=== PATIENT | female | born 1985 | race Caucasian/White ===

== ENCOUNTER 2017-01-14 17:58 | Emergency (ER) | payer BC ==
[2017-01-14] MEDS ORDERED: diphenhydrAMINE 50 MG/ML SDV ONE (18:05)
[2017-01-14] MEDS ORDERED: Ketorolac 30 MG/ML SDV ONE (18:05)
[2017-01-14] MEDS ORDERED: Ondansetron 4 MG/2 ML SDV ONE (18:05)
[2017-01-14] MEDS: Sodium Chloride 0.9% 1,000 ML IV ONE ×2 (18:15→20:15)
[2017-01-14] MEDS: Sodium Chloride 0.9% 1,000 ML ONE (18:15)
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
[2017-01-14] MEDS ORDERED: Metoclopramide 10 MG/2 ML SDV IVPUSH ONE (18:55)
[2017-01-14 21:20] VITALS: BP 132/75
[2017-01-17] MEDS ORDERED: diphenhydrAMINE 50 MG/ML SDV IV ONE (10:19)
[2017-01-17] MEDS ORDERED: Ketorolac 30 MG/ML SDV IVPUSH ONE (10:20)
[2017-01-17] MEDS ORDERED: Ondansetron 4 MG/2 ML SDV IV ONE (10:21)
[2017-01-17] MEDS: Sodium Chloride 0.9% 1,000 ML ONE (12:17)
== END 2017-01-14 19:30 | disposition home or self-care (01) ==
LOC: KA.ED 17:58
DX: G43.909 Migraine, unspecified, not intractable, without status migrainosus (principal); F17.210 Nicotine dependence, cigarettes, uncomplicated; I10 Essential (primary) hypertension; Z88.5 Allergy status to narcotic agent; Z88.0 Allergy status to penicillin; Z91.040 Latex allergy status; Z88.8 Allergy status to other drugs, medicaments and biological substances; Z79.899 Other long term (current) drug therapy
CPT/HCPCS: 96361; 96374; 96375; 99283; J1200; J1885; J2405; J2765; J7030

== ENCOUNTER 2017-01-29 09:30 | Emergency (ER) | payer BC ==
[2017-01-29] MEDS ORDERED: Sodium Chloride 0.9% 1,000 ML IV ONE (09:52)
[2017-01-29] MEDS ORDERED: Metoclopramide 10 MG/2 ML SDV IVPUSH ONE (09:52)
[2017-01-29] MEDS ORDERED: Sodium Chloride 0.9% 5 ML Syringe FLUSH PRN (09:52)
[2017-01-29] MEDS ORDERED: diphenhydrAMINE 50 MG/ML SDV IVPUSH ONE (09:52)
[2017-01-29] MEDS ORDERED: Ketorolac 30 MG/ML SDV IVPUSH ONE (09:52)
[2017-01-29 09:53] VITALS: BP 135/84
--- NOTE | 2017-01-29 10:00 | EDM.PDOC ---
ED HPI GENERAL MEDICAL PROBLEM - General Chief Complaint: Headache Stated Complaint: HEADACHE Time Seen by Provider: 01/29/17 09:40 Source of Information: Reports: Patient History Limitations: Reports: No Limitations - History of Present Illness INITIAL COMMENTS - FREE TEXT/NARRATIVE: 31 YO WF presents to ER with complaint of migraine headache. Pt reports she has a long standing history of headaches which are typically treated with immitrex with good relief, but this am she woke up with this headache and it has gradually worsened even after taking her medication. Pt has been in ER 2 weeks ago with same complaint. Pt states she has had headaches like this in the past. Pt with associated nausea/vomiting, pt denies fever/chills, denies neuro deficits. Pt has had imaging (CT head) approx 1 year ago. Pt denies neurology evaluation in the past. Onset: Today Onset Date: 01/29/17 Onset Time: 07:00 Location: Reports: Head Quality: Reports: Ache Severity: Moderate Improves with: Reports: Rest Worsens with: Reports: Movement Associated Symptoms: Reports: Headaches, Nausea/Vomiting. Denies: Confusion, Fever/Chills, Seizure, Syncope, Weakness Headache Pain Score (Numeric/FACES): 10 - Related Data Allergies Allergy/AdvReac Type Severity Reaction Status Date / Time codeine Allergy Hives Verified 01/14/17 18:30 latex Allergy Hives Verified 01/14/17 18:30 Penicillins Allergy Numbness Verified 01/14/17 18:30 flu vaccine Allergy Anaphylactic Uncoded 02/16/16 11:31 Shock Home Meds: Home Meds Furosemide [Lasix] 40 mg PO BID 07/24/14 [History] SUMAtriptan [Imitrex] 100 mg PO TID PRN 07/24/14 [History] ALPRAZolam [Alprazolam] 0.25 mg PO BEDTIME PRN 02/16/16 [History] Diclofenac Sodium [IJD: Diclofenac Sodium] 75 mg PO BID 01/14/17 [History] Losartan [Cozaar] 100 mg PO DAILY 01/14/17 [History] traMADol [Ultram] 50 mg PO Q6H PRN 01/14/17 [History] Past Medical History HEENT History: Reports: Impaired Vision Cardiovascular History: Reports: Hypertension Gastrointestinal History: Reports: Hemorrhoids 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 Oncologic (Cancer) History: Reports: Cervix - Infectious Disease History Infectious Disease History: Reports: Chicken Pox - Past Surgical History Female Surgical History: Reports: Cervical Conization, Hysterectomy Social & Family History - Tobacco Use Smoking Status *Q: Unknown Ever Smoked Years of Tobacco use: 11 Packs/Tins Daily: 0.3 Used Tobacco, but Quit: Yes Month Tobacco Last Used: 08 Second Hand Smoke Exposure: Yes - Caffeine Use Caffeine Use: Reports: Coffee - Alcohol Use Days Per Week of Alcohol Use: 0 - Recreational Drug Use Recreational Drug Use: No - Living Situation & Occupation Living situation: Reports: Occupation: Employed ED ROS GENERAL - Review of Systems Review Of Systems: See Below Constitutional: Reports: No Symptoms HEENT: Reports: No Symptoms Respiratory: Reports: No Symptoms Cardiovascular: Reports: No Symptoms Endocrine: Reports: No Symptoms GI/Abdominal: Reports: No Symptoms : Reports: No Symptoms Musculoskeletal: Reports: No Symptoms Skin: Reports: No Symptoms Neurological: Reports: Headache. Denies: Confusion, Dizziness, Numbness, Paresthesia, Tingling, Tremors, Trouble Speaking, Difficulty Walking, Weakness, Change in Speech, Gait Disturbance Psychiatric: Reports: Anxiety Hematologic/Lymphatic: Reports: No Symptoms Immunologic: Reports: No Symptoms - Physical Exam Exam: See Below Exam Limited By: No Limitations General Appearance: Alert, WD/WN, Mild Distress Eye Exam: Bilateral Eye: EOMI, PERRL Ears: Normal External Exam, Normal Canal, Hearing Grossly Normal, Normal TMs Nose: Normal Inspection, Normal Mucosa, No Blood Throat/Mouth: Normal Inspection, Normal Lips, Normal Teeth, Normal Gums, Normal Oropharynx, Normal Voice, No Airway Compromise Head Exam: Atraumatic, Normocephalic Neck: Normal Inspection, Supple, Non-Tender, Full Range of Motion Respiratory/Chest: No Respiratory Distress, Lungs Clear, Normal Breath Sounds, No Accessory Muscle Use, Chest Non-Tender Cardiovascular: Normal Peripheral Pulses, Regular Rate, Rhythm, No Edema, No Gallop, No JVD, No Murmur, No Rub GI/Abdominal: Normal Bowel Sounds, Soft, Non-Tender, No Organomegaly, No Distention, No Abnormal Bruit, No Mass Neuro Exam (Abbreviated): Alert, Oriented, CN II-XII Intact, Normal Cognition, Normal Gait, Normal Reflexes, No Motor/Sensory Deficits Back Exam: Normal Inspection, Full Range of Motion, NT Extremities: Normal Inspection, Normal Range of Motion, Non-Tender, No Pedal Edema, Normal Capillary Refill Psychiatric: Anxious, Tearful Skin Exam: Warm, Dry, Intact, Normal Color, No Rash Course - Vital Signs Last Recorded V/S: Last Vital Signs Temp 36.6 C 01/29/17 09:50 Pulse 76 01/29/17 09:50 Resp 18 01/29/17 09:50 BP 135/84 01/29/17 09:50 Pulse Ox - Orders/Labs/Meds Orders: Active Orders 24 hr Category Date Time Status Peripheral IV Care [RC] . DIRECTED Care 01/29/17 09:52 Active Sodium Chloride 0.9% [Normal Saline] 1,000 ml Med 01/29/17 09:52 Active IV .BOLUS Sodium Chloride 0.9% [Syrex Flush] Med 01/29/17 09:52 Active 5 ml FLUSH Q8HR PRN Peripheral IV Insertion Adult [OM.PC] Routine Oth 01/29/17 09:52 Ordered Medication Orders Sodium Chloride (Normal Saline) 1,000 mls @ 999 mls/hr IV .BOLUS ONE Stop: 01/29/17 10:52 Last Admin: 01/29/17 10:07 Dose: 999 mls/hr Sodium Chloride (Syrex Flush) 5 ml FLUSH Q8HR PRN PRN Reason: Keep Vein Open Meds: Medications Generic Name Dose Route Start Last Admin Trade Name Freq PRN Reason Stop Dose Admin Sodium Chloride 1,000 mls @ 999 mls/hr 01/29/17 09:52 01/29/17 10:07 Normal Saline IV 01/29/17 10:52 999 mls/hr .BOLUS ONE Administration Sodium Chloride 5 ml 01/29/17 09:52 Syrex Flush FLUSH Q8HR PRN Keep Vein Open Discontinued Medications Generic Name Dose Route Start Last Admin Trade Name Freq PRN Reason Stop Dose Admin Diphenhydramine HCl 50 mg 01/29/17 09:52 01/29/17 10:07 Benadryl IVPUSH 01/29/17 09:53 50 mg ONETIME ONE Administration Ketorolac Tromethamine 30 mg 01/29/17 09:52 01/29/17 10:07 Toradol IVPUSH 01/29/17 09:53 30 mg ONETIME ONE Administration Metoclopramide HCl 10 mg 01/29/17 09:52 01/29/17 10:07 Reglan IVPUSH 01/29/17 09:53 10 mg ONETIME ONE Administration Departure - Departure Time of Disposition: 10:45 Disposition: Home, Self-Care 01 Condition: Good Clinical Impression: Migraine - Discharge Information Instructions: Recurrent Migraine Headache, [id number] Referrals: Farhan Gonzalez MD [Physician] - Forms: ED Department Discharge - My Orders Last 24 Hours: My Active Orders 01/29/17 09:52 Peripheral IV Care [RC] . DIRECTED Sodium Chloride 0.9% [Normal Saline] 1,000 ml IV .BOLUS Sodium Chloride 0.9% [Syrex Flush] 5 ml FLUSH Q8HR PRN Peripheral IV Insertion Adult [OM.PC] Routine - Assessment/Plan Last 24 Hours: My Active Orders 01/29/17 09:52 Peripheral IV Care [RC] . DIRECTED Sodium Chloride 0.9% [Normal Saline] 1,000 ml IV .BOLUS Sodium Chloride 0.9% [Syrex Flush] 5 ml FLUSH Q8HR PRN Peripheral IV Insertion Adult [OM.PC] Routine Assessment:: 1. Migraine Headache- resolved Plan: 1. discharge home 2. rest 3. plenty of fluids 4. follow up with PCP for further evaluation- consider neurology evaluation if frequency of Headaches continues to progress 5. Return to ER for worsening symptoms
== END 2017-01-29 11:10 | disposition home or self-care (01) ==
LOC: KA.ED 09:30
DX: G43.909 Migraine, unspecified, not intractable, without status migrainosus (principal); I10 Essential (primary) hypertension; Z88.5 Allergy status to narcotic agent; Z79.899 Other long term (current) drug therapy; Z88.0 Allergy status to penicillin; Z91.040 Latex allergy status
CPT/HCPCS: 96361; 96374; 96375; 99283; J1200; J1885; J2765; J7030

== ENCOUNTER 2020-01-18 17:09 | Emergency (ER) | payer BC, MEDICAID, OTHER ==
[2020-01-18] MEDS ORDERED: Meperidine PF 50 MG/ML Syringe IM ONE (17:37)
[2020-01-18] MEDS ORDERED: SUMAtriptan 25 MG Tab PO ONE (17:58)
[2020-01-18] MEDS ORDERED: Acetaminophen 500 MG Tab PO ONE (18:03)
[2020-01-18] MEDS ORDERED: Ondansetron 4 MG Tab.DIS PO ONE (18:05)
[2020-01-18] MEDS ORDERED: diphenhydrAMINE 25 MG Cap PO ONE (18:15)
--- NOTE | 2020-01-18 18:26 | EDM.PDOC ---
ED HPI GENERAL MEDICAL PROBLEM - General Chief Complaint: General Stated Complaint: sore throat Time Seen by Provider: 01/18/20 17:15 Source of Information: Reports: Patient History Limitations: Reports: No Limitations - History of Present Illness INITIAL COMMENTS - FREE TEXT/NARRATIVE: 34-year-old female presents emergency room with complaints of 7-day history of sore throat and headaches. She recently had COVID test that came back negative today. She reports that her throat has been bothering her increasingly gotten worse over the last a week. She does suffer from headaches particularly migraines and this seems to have exacerbated her headaches over the last week. She does take Imitrex. She denies any fever or chills. She has been experiencing little bit of upper abdominal pain today only. She states that her throat feels very sharp and stabbing like and is difficult for her to swallow any food. Onset: Gradual Onset Date: 01/10/20 Duration: Day(s):, Getting Worse Location: Reports: Head, Neck Quality: Reports: Sharp Severity: Severe Improves with: Reports: None Worsens with: Reports: None Associated Symptoms: Reports: Headaches Throat Pain Score (Numeric/FACES): 8 - Related Data Allergies Allergy/AdvReac Type Severity Reaction Status Date / Time codeine Allergy Hives Verified 01/18/20 17:36 latex Allergy Hives Verified 01/18/20 17:36 Penicillins Allergy Numbness Verified 01/18/20 17:36 flu vaccine Allergy Unknown Anaphylactic Uncoded 01/18/20 17:36 Shock Home Meds: Home Meds Furosemide [Lasix] 40 mg PO BID 07/24/14 [History] SUMAtriptan [Imitrex] 100 mg PO TID PRN 07/24/14 [History] Losartan [Cozaar] 100 mg PO DAILY 01/14/17 [History] Simethicone [Gas-X] 2 tab PO DAILY PRN 01/13/19 [History] Phentermine HCl 37.5 mg PO DAILY 01/18/20 [History] Past Medical History HEENT History: Reports: Impaired Vision Cardiovascular History: Reports: Hypertension, Other (See Below) Other Cardiovascular History: fluid retention Gastrointestinal History: Reports: Hemorrhoids 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 Oncologic (Cancer) History: Reports: Cervix - Infectious Disease History Infectious Disease History: Reports: Chicken Pox - Past Surgical History HEENT Surgical History: Reports: Adenoidectomy, Tonsillectomy GI Surgical History: Reports: Cholecystectomy, Colonoscopy, EGD Female Surgical History: Reports: Cervical Conization, Hysterectomy Social & Family History - Tobacco Use Smoking Status *Q: Current Every Day Smoker Years of Tobacco use: 5 Packs/Tins Daily: 0.1 - Caffeine Use Caffeine Use: Reports: None - Recreational Drug Use Recreational Drug Use: No - Living Situation & Occupation Living situation: Reports: Occupation: Employed ED ROS GENERAL - Review of Systems Review Of Systems: See Below Constitutional: Reports: No Symptoms HEENT: Reports: Throat Pain, Throat Swelling Respiratory: Reports: No Symptoms Cardiovascular: Reports: No Symptoms Endocrine: Reports: No Symptoms GI/Abdominal: Reports: Abdominal Pain : Reports: No Symptoms Musculoskeletal: Reports: No Symptoms Skin: Reports: No Symptoms Neurological: Reports: Headache. Denies: Seizure, Trouble Speaking, Change in Speech Psychiatric: Reports: No Symptoms Hematologic/Lymphatic: Reports: No Symptoms Immunologic: Reports: No Symptoms ED EXAM, GENERAL - Physical Exam Exam: See Below Exam Limited By: No Limitations General Appearance: Alert, WD/WN, Moderate Distress, Obese Eye Exam: Bilateral Eye: EOMI Ears: Hearing Grossly Normal, Normal TMs Nose: Normal Inspection Throat/Mouth: Normal Lips, Normal Voice, No Airway Compromise, Inflammation Head: Atraumatic, Normocephalic Neck: Tender Lateral. No: Lymphadenopathy (L), Lymphadenopathy (R) Respiratory/Chest: No Respiratory Distress, Lungs Clear, Normal Breath Sounds, No Accessory Muscle Use, Chest Non-Tender Cardiovascular: Regular Rate, Rhythm GI/Abdominal: Normal Bowel Sounds, Soft, Non-Tender, No Organomegaly, No Distention, No Abnormal Bruit, No Mass, Pelvis Stable Back Exam: Normal Inspection Extremities: Normal Inspection Neurological: Alert, Oriented, No Motor/Sensory Deficits Psychiatric: Tearful Skin Exam: Warm, Dry, Intact, Normal Color, No Rash Lymphatic: No Adenopathy Course - Vital Signs Last Recorded V/S: Last Vital Signs Temp 98.2 F 01/18/20 17:28 Pulse 95 01/18/20 21:11 Resp 18 01/18/20 17:28 BP 174/119 H 01/18/20 21:11 Pulse Ox 98 01/18/20 20:55 - Orders/Labs/Meds Orders: Active Orders 24 hr Category Date Time Status CULTURE STREP A CONFIRMATION [] Stat Lab 01/18/20 17:25 Results CULTURE URINE [] Stat Lab 01/18/20 20:13 Received CULTURE URINE [] Stat Lab 01/18/20 22:12 Ordered STREP SCRN A RAPID W CULT CONF [] Stat Lab 01/18/20 17:25 Results Labs: Laboratory Tests 01/18/20 01/18/20 01/18/20 Range/Units 20:00 20:00 20:00 WBC 21.94 H D (5.00-10.00) 10^3/uL RBC 5.30 (3.80-5.50) 10^6/uL Hgb 16.1 H (12.0-16.0) g/dL Hct 46.6 (37.0-47.0) % MCV 87.9 (82.0-92.0) fL MCH 30.4 (27.0-31.0) pg MCHC 34.5 (32.0-36.0) g/dL RDW 12.8 (11.5-14.5) % Plt Count 439 H D (150-400) 10^3/uL MPV 9.3 (7.4-10.4) fL Immature Gran % (Auto) 0.5 (0.0-5.0) % Neut % (Auto) 67.7 (50.0-70.0) % Lymph % (Auto) 25.6 (20.0-40.0) % [place] % (Auto) 5.2 (2.0-8.0) % Eos % (Auto) 0.8 L (1.0-3.0) % Baso % (Auto) 0.2 (0.0-1.0) % Neut # (Auto) 14.87 H (2.50-7.00) 10^3/uL Lymph # (Auto) 5.62 H (1.00-4.00) 10^3/uL [place] # (Auto) 1.13 H (0.10-0.80) 10^3/uL Eos # (Auto) 0.17 (0.10-0.30) 10^3/uL Baso # (Auto) 0.05 (0.00-0.10) 10^3/uL Immature Gran # (Auto) 0.10 (0.00-0.50) 10^3/uL Sodium 138 (136-145) mmol/L Potassium 3.2 L (3.3-5.3) mmol/L Chloride 99 (98-115) mmol/L Carbon Dioxide 27.0 (21.0-32.0) mmol/L Anion Gap 15.2 H (5-15) mmol/L BUN 12 (6-25) mg/dL Creatinine 0.82 (0.51-1.17) mg/dL Est Cr Clr Drug Dosing 81.90 mL/min Estimated GFR (MDRD) > 60 mL/min Glucose 104 H (75 - 99) mg/dL Lactic Acid 1.3 (0.4-2.0) mmol/L Calcium 9.3 (8.7-10.3) mg/dL Specimen Type Urine Color (YELLOW) Urine Appearance (CLEAR) Urine pH (5.0-9.0) Ur Specific [place] (1.005-1.030) Urine Protein (NEGATIVE) mg/dL Urine Glucose (UA) (NEGATIVE) mg/dL Urine Ketones (NEGATIVE) mg/dL Urine Occult Blood (NEGATIVE) Urine Nitrite (NEGATIVE) Urine Bilirubin (NEGATIVE) Urine Urobilinogen (0.2-1.0) E.U./dL Ur Leukocyte Esterase (NEGATIVE) Urine RBC (0-5) /HPF Urine WBC (0-5) /HPF Ur Epithelial Cells /LPF Urine Bacteria (NONE TO FEW) /HPF Urine Mucus (NEGATIVE) /LPF 01/18/20 Range/Units 21:30 WBC (5.00-10.00) 10^3/uL RBC (3.80-5.50) 10^6/uL Hgb (12.0-16.0) g/dL Hct (37.0-47.0) % MCV (82.0-92.0) fL MCH (27.0-31.0) pg MCHC (32.0-36.0) g/dL RDW (11.5-14.5) % Plt Count (150-400) 10^3/uL MPV (7.4-10.4) fL Immature Gran % (Auto) (0.0-5.0) % Neut % (Auto) (50.0-70.0) % Lymph % (Auto) (20.0-40.0) % [place] % (Auto) (2.0-8.0) % Eos % (Auto) (1.0-3.0) % Baso % (Auto) (0.0-1.0) % Neut # (Auto) (2.50-7.00) 10^3/uL Lymph # (Auto) (1.00-4.00) 10^3/uL [place] # (Auto) (0.10-0.80) 10^3/uL Eos # (Auto) (0.10-0.30) 10^3/uL Baso # (Auto) (0.00-0.10) 10^3/uL Immature Gran # (Auto) (0.00-0.50) 10^3/uL Sodium (136-145) mmol/L Potassium (3.3-5.3) mmol/L Chloride (98-115) mmol/L Carbon Dioxide (21.0-32.0) mmol/L Anion Gap (5-15) mmol/L BUN (6-25) mg/dL Creatinine (0.51-1.17) mg/dL Est Cr Clr Drug Dosing mL/min Estimated GFR (MDRD) mL/min Glucose (75 - 99) mg/dL Lactic Acid (0.4-2.0) mmol/L Calcium (8.7-10.3) mg/dL Specimen Type Urinvoid Urine Color Yellow (YELLOW) Urine Appearance Clear (CLEAR) Urine pH 5.5 (5.0-9.0) Ur Specific [place] >= 1.030 (1.005-1.030) Urine Protein 100 H (NEGATIVE) mg/dL Urine Glucose (UA) Negative (NEGATIVE) mg/dL Urine Ketones Trace H (NEGATIVE) mg/dL Urine Occult Blood Trace-intact H (NEGATIVE) Urine Nitrite Negative (NEGATIVE) Urine Bilirubin Small H (NEGATIVE) Urine Urobilinogen 0.2 (0.2-1.0) E.U./dL Ur Leukocyte Esterase Negative (NEGATIVE) Urine RBC 5-10 H (0-5) /HPF Urine WBC 20-30 H (0-5) /HPF Ur Epithelial Cells Few /LPF Urine Bacteria Moderate H (NONE TO FEW) /HPF Urine Mucus Moderate H (NEGATIVE) /LPF Meds: Medications Discontinued Medications Generic Name Dose Route Start Last Admin Trade Name Freq PRN Reason Stop Dose Admin Acetaminophen 1,000 mg 01/18/20 18:03 01/18/20 18:12 Tylenol Extra Strength PO 01/18/20 18:04 1,000 mg ONETIME ONE Administration Diazepam 5 mg 01/18/20 18:53 01/18/20 19:02 Valium. PO 01/18/20 18:54 5 mg ONETIME ONE Administration Diphenhydramine HCl 50 mg 01/18/20 18:15 01/18/20 18:21 Benadryl PO 01/18/20 18:16 50 mg ONETIME ONE Administration Sodium Chloride 1,000 mls @ 1,000 mls/hr 01/18/20 20:12 01/18/20 20:28 Normal Saline IV 01/18/20 21:11 1,000 mls/hr .BOLUS ONE Administration Ketorolac Tromethamine 60 mg 01/18/20 18:49 01/18/20 19:02 Toradol IM 01/18/20 18:50 60 mg ONETIME ONE Administration Meperidine HCl 50 mg 01/18/20 17:37 01/18/20 17:45 Demerol IM 01/18/20 17:38 50 mg ONETIME ONE Administration Metoprolol Succinate 50 mg 01/18/20 19:52 01/18/20 20:10 Toprol Xl PO 01/18/20 19:53 50 mg ONETIME ONE Administration Nystatin 5 ml 01/18/20 18:49 01/18/20 19:03 Mycostatin PO 01/18/20 18:50 5 ml ONETIME ONE Administration Ondansetron HCl 4 mg 01/18/20 18:05 01/18/20 18:13 Zofran Odt PO 01/18/20 18:06 4 mg ONETIME ONE Administration Sumatriptan Succinate 25 mg 01/18/20 17:58 01/18/20 18:12 Imitrex PO 01/18/20 17:59 25 mg ONETIME ONE Administration Trimethoprim/Sulfamethoxazole 1 tab 01/18/20 22:13 Septra Ds PO 01/18/20 22:14 ONETIME ONE Departure - Departure Time of Disposition: 22:17 Disposition: Home, Self-Care 01 Condition: Good Clinical Impression: Thrush, oral, Neutrophilic leukocytosis Pharyngitis Qualifiers: Pharyngitis/tonsillitis etiology: unspecified etiology Qualified Code(s): J02.9 - Acute pharyngitis, unspecified Migraine Qualifiers: Migraine type: chronic without aura Status migrainosus presence: without status migrainosus Intractability: intractable Qualified Code(s): G43.719 - Chronic migraine without aura, intractable, without status migrainosus UTI (urinary tract infection) Qualifiers: Urinary tract infection type: urethritis Qualified Code(s): N34.2 - Other urethritis - Discharge Information Instructions: Recurrent Migraine Headache, [id number], Oral Thrush, Adult, [id number], Pharyngitis, [id number], Sore Throat, [id number], Urinary Tract Infection, Adult Referrals: Rosemarie Lara PA-C [Primary Care Provider] - Forms: ED Department Discharge Additional Instructions: 1. Nystatin swish and swallow 4 times daily for 5 days 2. Imitrex as needed for migraines. 3. Rest 4. Hydration 5. With your primary care if symptoms are not improving on Tuesday Sepsis Event Note (ED) - Evaluation Sepsis Screening Result: No Definite Risk - Focused Exam Vital Signs: Vital Signs Temp Pulse Pulse Resp BP BP BP 01/18/20 21:11 95 174/119 H 01/18/20 20:55 97 173/125 H 01/18/20 20:34 90 132/95 H 01/18/20 20:10 113 H 113 H 220/142 H 220/142 H 01/18/20 19:45 108 H 213/135 H 01/18/20 19:29 109 H 195/138 H 01/18/20 17:28 98.2 F 115 H 18 BP Pulse Ox 01/18/20 21:11 01/18/20 20:55 98 01/18/20 20:34 01/18/20 20:10 01/18/20 19:45 01/18/20 19:29 01/18/20 17:28 219/122 H 97 - My Orders Last 24 Hours: My Active Orders 01/18/20 17:25 CULTURE STREP A CONFIRMATION [RM] Stat STREP SCRN A RAPID W CULT CONF [RM] Stat 01/18/20 20:13 CULTURE URINE [RM] Stat 01/18/20 22:12 CULTURE URINE [RM] Stat - Assessment/Plan Last 24 Hours: My Active Orders 01/18/20 17:25 CULTURE STREP A CONFIRMATION [RM] Stat STREP SCRN A RAPID W CULT CONF [RM] Stat 01/18/20 20:13 CULTURE URINE [RM] Stat 01/18/20 22:12 CULTURE URINE [RM] Stat Assessment:: Recurrent migraine Thrush Pharyngitis Plan: 1. Nystatin 4 times daily swish and swallow. 2. Imitrex as prescribed by your family physician as needed for migraines 3. Rest and oral hydration. 4. Bactrim DS 1 p.o. twice daily for 5 days 5. Follow-up with your primary care provider on Tuesday. 6. Urine was cultured results should be available next week
[2020-01-18] MEDS ORDERED: Ketorolac 30 MG/ML SDV IM ONE (18:49)
[2020-01-18] MEDS ORDERED: Nystatin Susp 100,000 Unit/ML 5 ML UD Cup PO ONE ×2 (18:49→22:21)
[2020-01-18] MEDS ORDERED: Diazepam 5 MG Tab PO ONE (18:53)
[2020-01-18] MEDS ORDERED: Metoprolol Succinate 50 MG Tab.ER PO ONE (19:52)
[2020-01-18] MEDS ORDERED: Sodium Chloride 0.9% 1,000 ML IV ONE (20:12)
[2020-01-18 20:29] LABS: ANION GAP 15.2 mmol/L (5-15); CHLORIDE,CL 99 mmol/L (98-115); SODIUM,NA 138 mmol/L (136-145)
[2020-01-18] MEDS ORDERED: Nystatin Susp 100,000 Unit/ML 5 ML UD Cup PO SCH (21:00)
[2020-01-18] MEDS ORDERED: Sulfamethoxazole/Trimethoprim 800-160 MG Tab PO ONE (22:13)
[2020-01-19 06:59] VITALS: BP 189/131; PULSE 94
== END 2020-01-18 22:39 | disposition home or self-care (01) ==
LOC: SUPCPDRO 17:09 → KA.ED 17:09
DX: J02.9 Acute pharyngitis, unspecified (principal); N34.2 Other urethritis; G43.719 Chronic migraine without aura, intractable, without status migrainosus; D72.828 Other elevated white blood cell count; I10 Essential (primary) hypertension; F17.210 Nicotine dependence, cigarettes, uncomplicated; B37.0 Candidal stomatitis; Z88.5 Allergy status to narcotic agent; Z91.040 Latex allergy status; Z88.0 Allergy status to penicillin; Z88.7 Allergy status to serum and vaccine; Z79.899 Other long term (current) drug therapy
CPT/HCPCS: 36415; 80048; 81001; 83605; 85025; 87081; 87086; 87430; 96360; 96372; 99284; A9270; J1885; J2175; J7030; 99283

== ENCOUNTER 2020-09-05 00:20 | Inpatient (IN) | payer MEDICAID ==
[2020-09-05] MEDS ORDERED: Sodium Chloride 0.9% 10 ML Syringe FLUSH PRN ×2 (00:22→01:43)
[2020-09-05] MEDS: Sodium Chloride 0.9% 1,000 ML IV ONE (00:32)
--- NOTE | 2020-09-05 00:32 | EDM.PDOC ---
ED HPI GENERAL MEDICAL PROBLEM - General Chief Complaint: Neuro Symptoms/Deficits Stated Complaint: SYNCOPE Time Seen by Provider: 09/05/20 00:20 Source of Information: Reports: Patient, EMS History Limitations: Reports: No Limitations - History of Present Illness INITIAL COMMENTS - FREE TEXT/NARRATIVE: 34 YO WF PRESENTS TO ER BY EMS AFTER SYNCOPAL EPISODE AT HOME TONIGHT. PT R EPORTS SHE WAS GETTING READY FOR BED AND DEVELOPED A LEFT SIDED HEADACHE AND HAD A WITNESSED SYNCOPAL EPISODE. PT WAS ALERT AND ORIENTED UPON EMS ARRIVAL BUT CONTINUED TO COMPLAIN OF HEADACHE AND MILD CHEST DISCOMFORT. PT WITH PMH OF HYPERTENSION WHICH SHE TAKES LOSARTAN 100MG DAILY AND LASIX 80MG DAILY. PT DENIES ANY FOCAL WEAKNESS OR NUMBNESS. NO FACIAL DROOP, NO SLURRED SPEECH, NO ATAXIA OR PRONATOR DRIFT. PT WITH BP 188/96 WITH HR-111. PT DENIES CHEST PAIN CURRENTLY. GCS-15; ALERT AND ORIENTED X 4. PT ALSO TAKES AMBIEN FOR SLEEP AND TRAMADOL FOR PAIN NEEDED. Onset: Sudden Onset Date: 09/05/20 Onset Time: 23:00 Location: Reports: Head, Generalized Quality: Reports: Ache Severity: Moderate Improves with: Reports: None Worsens with: Reports: None Associated Symptoms: Reports: No Other Symptoms, Chest Pain, Headaches, Nausea/Vomiting, Syncope. Denies: Confusion, Cough, Fever/Chills, Shortness of Breath - Related Data Allergies Allergy/AdvReac Type Severity Reaction Status Date / Time codeine Allergy Hives Verified 01/18/20 17:36 latex Allergy Hives Verified 01/18/20 17:36 Penicillins Allergy Numbness Verified 01/18/20 17:36 flu vaccine Allergy Unknown Anaphylactic Uncoded 01/18/20 17:36 Shock Home Meds: Home Meds Furosemide [Lasix] 40 mg PO BID 07/24/14 [History] SUMAtriptan [Imitrex] 100 mg PO TID PRN 07/24/14 [History] Losartan [Cozaar] 100 mg PO DAILY 01/14/17 [History] Simethicone [Gas-X] 2 tab PO DAILY PRN 01/13/19 [History] Phentermine HCl 37.5 mg PO DAILY 01/18/20 [History] Past Medical History HEENT History: Reports: Impaired Vision Cardiovascular History: Reports: Hypertension, Other (See Below) Other Cardiovascular History: fluid retention Gastrointestinal History: Reports: Hemorrhoids 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 Endocrine/Metabolic History: Reports: Obesity/BMI 30+ Oncologic (Cancer) History: Reports: Cervix - Infectious Disease History Infectious Disease History: Reports: Chicken Pox - Past Surgical History HEENT Surgical History: Reports: Adenoidectomy, Tonsillectomy GI Surgical History: Reports: Cholecystectomy, Colonoscopy, EGD Female Surgical History: Reports: Cervical Conization, Hysterectomy Social & Family History - Caffeine Use Caffeine Use: Reports: None - Living Situation & Occupation Living situation: Reports: Occupation: Employed ED ROS GENERAL - Review of Systems Review Of Systems: See Below Constitutional: Reports: No Symptoms HEENT: Reports: No Symptoms Respiratory: Reports: No Symptoms Cardiovascular: Reports: Chest Pain, Blood Pressure Problem, Syncope Endocrine: Reports: No Symptoms GI/Abdominal: Reports: No Symptoms : Reports: No Symptoms Musculoskeletal: Reports: No Symptoms Skin: Reports: No Symptoms Neurological: Reports: Headache, Syncope Psychiatric: Reports: No Symptoms Hematologic/Lymphatic: Reports: No Symptoms Immunologic: Reports: No Symptoms - Physical Exam Exam: See Below Exam Limited By: No Limitations General Appearance: Alert, WD/WN, No Apparent Distress Eye Exam: Bilateral Eye: EOMI, PERRL Head Exam: Atraumatic, Normocephalic Neck: Normal Inspection, Supple, Non-Tender, Full Range of Motion Respiratory/Chest: No Respiratory Distress, Lungs Clear, Normal Breath Sounds, No Accessory Muscle Use, Chest Non-Tender Cardiovascular: Regular Rate, Rhythm, No Edema, No Gallop, No JVD, No Murmur, No Rub, Tachycardia GI/Abdominal: Normal Bowel Sounds, Soft, Non-Tender, No Organomegaly, No Distention, No Abnormal Bruit, No Mass Neuro Exam (Abbreviated): Alert, Oriented, CN II-XII Intact, Normal Cognition, Normal Gait, Normal Reflexes, No Motor/Sensory Deficits Back Exam: Normal Inspection, Full Range of Motion, NT Extremities: Normal Inspection, Normal Range of Motion, Non-Tender, No Pedal Edema, Normal Capillary Refill Psychiatric: Normal Affect, Normal Mood Skin Exam: Warm, Dry, Intact, Normal Color, No Rash #1 Interpretation EKG Date: 09/05/20 Time: 00:28 Rhythm: NSR Rate (Beats/Min): 113 [place]: Normal P-Wave: Present QRS: Normal ST-T: Normal QT: Normal Course - Vital Signs Last Recorded V/S: Last Vital Signs Temp 98.4 F 09/05/20 00:32 Pulse 120 H 09/05/20 00:32 Resp 24 H 09/05/20 00:32 BP 188/96 H 09/05/20 00:32 Pulse Ox 95 09/05/20 00:32 - Orders/Labs/Meds Orders: Active Orders 24 hr Category Date Time Status Cardiac Monitoring [RC] . DIRECTED Care 09/05/20 00:22 Active EKG Documentation Completion [RC] ASDIRECTED Care 09/05/20 00:22 Active Peripheral IV Care [RC] . DIRECTED Care 09/05/20 00:22 Active Chest 1V Frontal [CR] Stat Exams 09/05/20 00:22 Ordered Head wo Cont [CT] Stat Exams 09/05/20 00:22 Ordered DRUG SCREEN, URINE [URCHEM] Stat Lab 09/05/20 00:22 Ordered Potassium Chloride [Klor-Con M20] Med 09/05/20 01:32 Once 40 meq PO ONETIME ONE Sodium Chloride 0.9% [Saline Flush] Med 09/05/20 00:22 Active 10 ml FLUSH Q8HR PRN Peripheral IV Insertion Adult [OM.PC] Routine Oth 09/05/20 00:22 Ordered EKG 12 Lead [EK] Stat Ther 09/05/20 00:22 Ordered Medication Orders Sodium Chloride (Sodium Chloride 0.9% 10 Ml Syringe) 10 ml FLUSH Q8HR PRN PRN Reason: keep vein open Labs: Laboratory Tests 09/05/20 09/05/20 09/05/20 Range/Units 00:50 00:50 00:50 WBC 14.70 H (5.00-10.00) 10^3/uL RBC 4.67 (3.80-5.50) 10^6/uL Hgb 14.3 (12.0-16.0) g/dL Hct 41.0 (37.0-47.0) % MCV 87.8 (82.0-92.0) fL MCH 30.6 (27.0-31.0) pg MCHC 34.9 (32.0-36.0) g/dL RDW 12.7 (11.5-14.5) % Plt Count 348 D (150-400) 10^3/uL MPV 9.1 (7.4-10.4) fL Immature Gran % (Auto) 0.3 (0.0-5.0) % Neut % (Auto) 53.6 (50.0-70.0) % Lymph % (Auto) 37.5 (20.0-40.0) % [place] % (Auto) 7.3 (2.0-8.0) % Eos % (Auto) 1.0 (1.0-3.0) % Baso % (Auto) 0.3 (0.0-1.0) % Neut # (Auto) 7.89 H (2.50-7.00) 10^3/uL Lymph # (Auto) 5.51 H (1.00-4.00) 10^3/uL [place] # (Auto) 1.08 H (0.10-0.80) 10^3/uL Eos # (Auto) 0.14 (0.10-0.30) 10^3/uL Baso # (Auto) 0.04 (0.00-0.10) 10^3/uL Immature Gran # (Auto) 0.04 (0.00-0.50) 10^3/uL Sodium 140 (136-145) mmol/L Potassium 2.6 L (3.5-5.1) mmol/L Chloride 98 (98-107) mmol/L Carbon Dioxide 30.7 (21.0-32.0) mmol/L Anion Gap 13.9 (5-15) mmol/L BUN 14 (7-18) mg/dL Creatinine 0.71 (0.51-1.17) mg/dL Est Cr Clr Drug Dosing TNP Estimated GFR (MDRD) > 60 mL/min Glucose 129 (70-140) mg/dL Calcium 8.5 L (8.7-10.3) mg/dL Total Bilirubin 0.4 (0.2-1.0) mg/dL AST 35 (15-37) U/L ALT 38 (14-63) U/L Alkaline Phosphatase 83 (46-116) U/L Creatine Kinase 65 (26-276) U/L CK-MB (CK-2) 0.64 (0.00-3.60) ng/mL Troponin I High Sens 10.600 (0-51.000) pg/mL B-Natriuretic Peptide < 5 (0-100) pg/mL Total Protein 7.3 (6.4-8.2) g/dL Albumin 3.40 (3.40-5.00) g/dL HCG, Quant < 1 mIU/mL Meds: Medications Generic Name Dose Route Start Last Admin Trade Name Freq PRN Reason Stop Dose Admin Sodium Chloride 10 ml 09/05/20 00:22 Sodium Chloride 0.9% 10 Ml Syringe FLUSH Q8HR PRN keep vein open Discontinued Medications Generic Name Dose Route Start Last Admin Trade Name Freq PRN Reason Stop Dose Admin Sodium Chloride 1,000 mls @ 999 mls/hr 09/05/20 00:22 09/05/20 00:32 Normal Saline IV 09/05/20 01:22 999 mls/hr .BOLUS ONE Administration Labetalol HCl 20 mg 09/05/20 00:34 09/05/20 01:10 Labetalol 100 Mg/20 Ml Mdv IVPUSH 09/05/20 00:35 20 mg ONETIME ONE Administration Protocol Ondansetron HCl 4 mg 09/05/20 00:34 09/05/20 00:39 Ondansetron 4 Mg/2 Ml Sdv IVPUSH 09/05/20 00:35 4 mg ONETIME ONE Administration Ondansetron HCl Confirm 09/05/20 00:36 09/05/20 00:41 Ondansetron 4 Mg/2 Ml Sdv Administered 09/05/20 00:37 Not Given Dose 4 mg .ROUTE .[facility] - Radiology Interpretation Free Text/Narrative:: CXR-NAD CT HEAD-NAD - Re-Assessments/Exams Free Text/Narrative Re-Assessment/Exam: 09/05/20 01:21 LABETALOL 20MG IV GIVEN WITH GOOD RESULTS- HR-90; BP-148/98 AFTER MEDICATION- H R-113; BP 188/110 PRIOR TO MEDICATION ADMINISTRATION. PT REPORTS FEELING BETTER BUT STILL HAS 5/10 LEFT SIDED HEADACHE WITHOUT BLURRED VISION Departure - Departure Time of Disposition: 01:35 Disposition: Admitted As Inpatient 64 Condition: Fair Clinical Impression: Hypertensive urgency, Hypokalemia, Headache Syncopal episodes Qualifiers: Encounter type: initial encounter - Discharge Information Forms: ED Department Discharge Sepsis Event Note (ED) - Focused Exam Vital Signs: Vital Signs Temp Pulse Resp BP Pulse Ox 09/05/20 00:32 98.4 F 120 H 24 H 188/96 H 95 - My Orders Last 24 Hours: My Active Orders 09/05/20 00:22 Cardiac Monitoring [RC] . DIRECTED EKG Documentation Completion [RC] ASDIRECTED Peripheral IV Care [RC] . DIRECTED Chest 1V Frontal [CR] Stat Head wo Cont [CT] Stat DRUG SCREEN, URINE [URCHEM] Stat Sodium Chloride 0.9% [Saline Flush] 10 ml FLUSH Q8HR PRN Peripheral IV Insertion Adult [OM.PC] Routine EKG 12 Lead [EK] Stat 09/05/20 01:32 Potassium Chloride [Klor-Con M20] 40 meq PO ONETIME ONE - Assessment/Plan Last 24 Hours: My Active Orders 09/05/20 00:22 Cardiac Monitoring [RC] . DIRECTED EKG Documentation Completion [RC] ASDIRECTED Peripheral IV Care [RC] . DIRECTED Chest 1V Frontal [CR] Stat Head wo Cont [CT] Stat DRUG SCREEN, URINE [URCHEM] Stat Sodium Chloride 0.9% [Saline Flush] 10 ml FLUSH Q8HR PRN Peripheral IV Insertion Adult [OM.PC] Routine EKG 12 Lead [EK] Stat 09/05/20 01:32 Potassium Chloride [Klor-Con M20] 40 meq PO ONETIME ONE Assessment:: 1. SYNCOPE 2. HYPERTENSIVE URGENCY 3. HYPOKALEMIA Plan: 1. ADMIT TO MEDICINE- DR UNDERWOOD TO ADMIT 2. K DUR 40MEQ NOW 3. MONITOR BLOOD PRESSURE CLOSELY- LABETALOL PRN 4. ZOFRAN 4MG ODT FOR NAUSEA PRN 5. REPEAT TROP I Q6 6. SUPPORTIVE CARE
[2020-09-05] MEDS: Ondansetron 4 MG/2 ML SDV IVPUSH ONE (00:39)
[2020-09-05] MEDS: Ondansetron 4 MG/2 ML SDV ONE (00:41)
[2020-09-05] MEDS: Labetalol 100 MG/20 ML MDV IVPUSH ONE (01:10)
[2020-09-05 01:27] LABS: ANION GAP 13.9 mmol/L (5-15); CHLORIDE,CL 98 mmol/L (98-107); SODIUM,NA 140 mmol/L (136-145)
[2020-09-05] MEDS ORDERED: Ondansetron 4 MG/2 ML SDV IV PRN (01:43)
[2020-09-05] MEDS: Ketorolac 30 MG/ML SDV IVPUSH ONE ×2 (01:47→09:12)
[2020-09-05 01:51] LABS: BARBITURATE SCREEN,URINE NEGATIVE (NEGATIVE); BENZODIAZEPINES SCREEN,URINE NEGATIVE (NEGATIVE); TCA SCREEN,URINE NEGATIVE (NEGATIVE); THC SCREEN,URINE 50 NG/ML NEGATIVE (NEGATIVE)
[2020-09-05] MEDS: Potassium Chloride 20 MEQ Tab.ER PO ONE ×2 (02:08→09:12)
[2020-09-05] MEDS: diphenhydrAMINE 50 MG/ML SDV IVPUSH ONE (02:35)
[2020-09-05 06:29] VITALS: PULSE 86
--- NOTE | 2020-09-05 07:32 | CR ---
[id number] RAD/RAD Chest Portable EXAM: PORTABLE CHEST INDICATION: SYNCOPE COMPARISON: February 28, 2015. DISCUSSION: The heart and lungs are normal in appearance. IMPRESSION: 1. Negative exam. Jv An MD 09/05/20 0731 Thank you for allowing us to participate in the care of your patient.
--- NOTE | 2020-09-05 07:35 | CT ---
[id number] CT/CT Head WO IV EXAM: NONCONTRAST HEAD CT INDICATION: SYNCOPE COMPARISON: February 28, 2015. DISCUSSION: The ventricles and sulci are normal in size and configuration. The [place] and white matter are normal in attenuation. No mass effect or midline shift. No acute hemorrhage or extra-axial fluid collection. No acute territorial infarct is identified. A limited look at the orbits and paranasal sinuses is unremarkable. IMPRESSION: 1. Negative exam. Jv An MD 09/05/20 0734 Thank you for allowing us to participate in the care of your patient.
[2020-09-05 08:27] LABS: ANION GAP 14.2 mmol/L (5-15); CHLORIDE,CL 101 mmol/L (98-107); SODIUM,NA 142 mmol/L (136-145)
[2020-09-05] MEDS ORDERED: traMADol 50 MG Tab PO PRN (08:38)
[2020-09-05] MEDS ORDERED: SUMAtriptan 25 MG Tab PO PRN (08:55)
[2020-09-05] MEDS ORDERED: Simethicone 80 MG Tab.Chew PO PRN (08:56)
[2020-09-05] MEDS: Furosemide 40 MG Tab PO SCH (09:11)
[2020-09-05] MEDS: Losartan 50 MG Tab PO SCH (09:11)
[2020-09-05 09:13] VITALS: BP 153/100
--- NOTE | 2020-09-06 00:41 | DISCH ---
This is a 34-year-old female who was admitted through the emergency room early this morning. The patient was brought to the hospital by the [facility] after intercepting with Giuliano. This patient was having an episode of altered mental status earlier in the evening. While in transport, the patient was awake and answering attendant slowly. The patient complained of her tongue feeling sick and she was having a hard time finding words to use correctly. The patient is morbidly obese with a history of hypertension. She was unable to tell the ambulance staff what medication she was taking for her blood pressure. She was able to report that she is taking Lasix. Apparently earlier in the evening she was at home with family and went unresponsive. The patient denied shortness of breath. She did admit to having photosensitivity secondary to a headache. She was answering questions correctly, but was slow to find the words that she wanted to use. The patient continued to have a left- sided headache upon admission to the emergency room. Upon arrival at the emergency room, her blood pressure was 188/96. She was given 20 mg of labetalol IV which improved her blood pressure. Her blood pressure following the labetalol was 148/98. The patient was having 5/10 left-sided headache without blurred vision. CT scan of the head showed no acute findings. She was found to have hypokalemia with a potassium of 2.6. She was given 40 mEq of potassium in the emergency room and her potassium improved today to 3.2. She was admitted for observation. She did receive 40 mEq of K-Dur before leaving the emergency room. She was given p.r.n. orders for labetalol. Her troponin was negative. 12-lead EKG showed sinus tachycardia, rate of 113 with no other abnormalities. Chest x-ray was performed and found to be negative. In review of the remainder of her lab work, her white blood cell count was 14,700 without a left shift. As mentioned earlier, potassium was 2.6 and replaced and has improved to 3.2 this morning. BUN and creatinine were normal. Calcium was 8.5, which is just a little low. Her liver enzymes were normal. Her troponins were negative x2. BNP was less than 5. HCG was negative. She was positive for amphetamine on her toxicology screen. The patient had been taking phentermine for weight loss. The patient has a history of fluid retention and is taking Lasix 80 mg daily. PHYSICAL EXAMINATION: VITAL SIGNS: Temp is 96.9, pulse 86, respirations 16, blood pressure 131/83, O2 sat is 94% on room air. SKIN: Warm and dry to touch. CARDIAC: S1, S2 to be normal. Rate and rhythm are regular. No murmur, click, or gallop is auscultated. LUNGS: Clear. ABDOMEN: Soft, obese, nontender. Bowel sounds present in all four quadrants. EXTREMITIES: There is trace pedal edema. IMPRESSION: 1. Hypertensive urgency. Her blood pressure has improved today to 131/83. She has not received any additional labetalol during the night. She will be discharged on losartan 100 mg as she was before. She was instructed to take her blood pressure on a daily basis and follow up with me in 1 week. Prior to this episode, the use of phentermine for appetite suppression, the benefits outweighed the risks. However, now with this hypertensive crisis, the risks outweigh the benefits. She will not be prescribed phentermine anymore and I have instructed her to discontinue this medication. 2. Hypokalemia. The patient admits that she has not been taking her potassium as prescribed. I urged to make sure that she is taking her potassium supplement. She is taking 20 mEq b.i.d. Labs will be checked at her followup appointment in one week. The lab work will include a CBC as well as a basic metabolic panel. 3. Morbid obesity. The last time I saw the patient in the clinic, she had had a profound weight gain. She was prescribed phentermine. Please see problem #1 for comment regarding this medication. She has tried to lose weight. I am afraid if she does not make some lifestyle changes with diet and exercise that she is going to develop more health related problems and be at risk for complications of the same. We have made a referral to Bariatric Surgery. This may be the only way the patient is able to lose weight and improve her health. Her significant other was with her in the room today and seems very supportive. The patient will follow up in 1 week with blood pressure readings. She informed me that she needs a Medicaid referral for the Bariatric consultation. However, I am not certain what she means by this, so she is going to look at her information she has at home and call me with that. The patient was given a one time dose of Toradol 30 mg IV for persistent headache. If she has any questions or concerns prior to her followup appointment, she will notify me. /[id number]/MODL
== END 2020-09-05 10:15 | disposition home or self-care (01) | DRG 641 ==
LOC: KA.ED 00:20 → UNDOADMIN 01:42 → KA.MS 01:42 → UNDOADMIN 03:00 → KA.MS 03:00
PROVIDERS: ADMIT Physician Assistant Medical; ATTEND Internal Medicine
DX: R55 Syncope and collapse (principal); E87.6 Hypokalemia; Z68.42 Body mass index [BMI] 45.0-49.9, adult; R51.9 Headache, unspecified; H54.7 Unspecified visual loss; I16.0 Hypertensive urgency; E66.9 Obesity, unspecified; I10 Essential (primary) hypertension; G89.29 Other chronic pain; M25.561 Pain in right knee; Z88.5 Allergy status to narcotic agent; Z88.0 Allergy status to penicillin; Z88.7 Allergy status to serum and vaccine; Z91.040 Latex allergy status; Z79.899 Other long term (current) drug therapy; Z20.822 Contact with and (suspected) exposure to COVID-19; E66.01 Morbid (severe) obesity due to excess calories; F41.9 Anxiety disorder, unspecified; Z85.41 Personal history of malignant neoplasm of cervix uteri; Z90.49 Acquired absence of other specified parts of digestive tract; Z90.89 Acquired absence of other organs; Z90.710 Acquired absence of both cervix and uterus
CPT/HCPCS: 36415; 70450; 71045; 80048; 80053; 80305-QW; 82550; 82553; 83880; 84484; 84702; 85025; 93005; 96374; 96375; 99236; 99285-25; A9270-GY; J1200; J1885; J2405; J3490; J7030; U0002

== ENCOUNTER 2020-10-04 23:51 | Emergency (ER) | payer MEDICAID ==
[2020-10-04] MEDS ORDERED: Sodium Chloride 0.9% 10 ML Syringe FLUSH PRN (23:55)
--- NOTE | 2020-10-05 00:49 | EDM.PDOC ---
ED HPI GENERAL MEDICAL PROBLEM - General Chief Complaint: General Stated Complaint: HTNN unsteady Time Seen by Provider: 10/05/20 00:24 Source of Information: Reports: Patient History Limitations: Reports: No Limitations - History of Present Illness INITIAL COMMENTS - FREE TEXT/NARRATIVE: Presents to the emergency room with spouse for chief complaint of hypertensive and unsteadiness. The patient has not feeling well this evening her spouse checked her blood pressure it was 180s over 90s on 1 arm and 80s over 50s on the other arm. Patient has history of recent hypertensive urgency and hypokalemia and was seen approximately 1 month ago here. Patient has history of swelling in which her bilateral hands were significantly swollen today but they have gradually improved but they still are swollen tonight. She has mild to moderate nonpitting lower extremity edema she has been dealing with as well and is on furosemide 40 mg twice a day. She has been compliant taking the diuretic medicine. She has history of hypokalemia with this however she ran out of her potassium 2 days ago has not taken any since then. She does not smoke she does not drink alcohol and she no illicit drug use, there was a positive urine tox screen 1 month ago with amphetamines however that is due to the her weight loss medication phentermine. In addition, the patient woke up with a migraine left- sided sharp, aching pain 10/18, she took her Imitrex this afternoon at 4 PM, it did not help. Patient states no change in her normal chronic type migraines from today's headache and the left side. There is no aura with this migraine. Patient states this is not the worst headache of her life. The patient and family both note that the patient was seen here last month her symptoms then were way worse than they are now however due to the change in blood pressure the patient felt unsteady the family convinced the patient to come return to the emergency room to be evaluated. - Related Data Allergies Allergy/AdvReac Type Severity Reaction Status Date / Time codeine Allergy Hives Verified 10/04/20 23:52 latex Allergy Hives Verified 10/04/20 23:52 Penicillins Allergy Numbness Verified 10/04/20 23:52 flu vaccine Allergy Unknown Anaphylactic Uncoded 09/05/20 02:28 Shock Home Meds: Home Meds Losartan [Cozaar] 100 mg PO DAILY 01/14/17 [History] Simethicone [Gas-X] 2 tab PO DAILY PRN 01/13/19 [History] SUMAtriptan succinate [Imitrex] 100 mg PO DAILY PRN #10 tablet 09/05/20 [Rx] traMADol HCl [Tramadol HCl] 1 - 2 tab PO Q6H PRN 09/05/20 [History] Doxycycline Hyclate 100 mg PO BEDTIME 10/05/20 [History] Furosemide [Lasix] 80 mg PO 09,12 10/05/20 [History] Potassium Chloride 40 meq PO DAILY 10/05/20 [History] Past Medical History HEENT History: Reports: Impaired Vision Cardiovascular History: Reports: Hypertension, Other (See Below) Other Cardiovascular History: fluid retention Gastrointestinal History: Reports: Hemorrhoids COAL GETTER History: Reports: Other (See Below) Other COAL GETTER History: cervical cancer Musculoskeletal History: Reports: Other (See Below) Other Musculoskeletal History: Chronic right knee pain Neurological History: Reports: Concussion, Head Trauma, Migraines Psychiatric History: Reports: Anxiety Other Psychiatric History: Uses xanax prn to help sleep. Endocrine/Metabolic History: Reports: Obesity/BMI 30+ Oncologic (Cancer) History: Reports: Cervix Dermatologic History: Reports: Other (See Below) - Infectious Disease History Infectious Disease History: Reports: Chicken Pox - Past Surgical History HEENT Surgical History: Reports: Adenoidectomy, Tonsillectomy GI Surgical History: Reports: Cholecystectomy, Colonoscopy, EGD Female Surgical History: Reports: Cervical Conization, Hysterectomy Other Female Surgeries/Procedures: cervical cancer Other Oncologic Surgeries/Procedures: hysterectomy,. still has ovaries. Social & Family History - Family History Family Medical History: No Pertinent Family History - Caffeine Use Caffeine Use: Reports: None - Living Situation & Occupation Living situation: Reports: Occupation: Employed [employer] [facility] - Review of Systems Review Of Systems: See Below Constitutional: Reports: Fatigue. Denies: Fever, Chills HEENT: Reports: No Symptoms. Denies: Rhinitis, Throat Pain, Vision Change Respiratory: Denies: Shortness of Breath, Pleuritic Chest Pain, Cough Cardiovascular: Reports: Chest Pain (15 minutes of chest discomfort earlier t floridalma, underneath left breast. went away, hasn't came back. ) GI/Abdominal: Reports: Abdominal Pain, Constipation, Diarrhea, Nausea (chronic abd pain, chronic diarrhea she notes. no vomiting, but has been nauseated. ), Other : Reports: No Symptoms Musculoskeletal: Reports: No Symptoms Neurological: Reports: Headache. Denies: Confusion, Dizziness, Numbness, Paresthesia, Seizure, Syncope, Tremors, Trouble Speaking, Difficulty Walking, Weakness, Change in Speech Psychiatric: Reports: No Symptoms ED EXAM, GENERAL - Physical Exam Exam: See Below Exam Limited By: No Limitations General Appearance: Alert, WD/WN, No Apparent Distress, Mild Distress, Obese Eye Exam: Bilateral Eye: EOMI, PERRL Nose: Normal Inspection Throat/Mouth: Normal Inspection, Normal Lips, Normal Oropharynx, Perioral Cyanosis Head: Atraumatic Neck: Normal Inspection, Supple Respiratory/Chest: No Respiratory Distress, Lungs Clear, Normal Breath Sounds, No Accessory Muscle Use, Chest Non-Tender Cardiovascular: Normal Peripheral Pulses, No Murmur, Tachycardia Peripheral Pulses: 2+: Radial (L), Radial (R), Posterior Tibial (L), Posterior Tibial (R), Dorsalis Pedis (L), Dorsalis Pedis (R) Back Exam: Normal Inspection, Full Range of Motion Extremities: Normal Inspection, Normal Range of Motion, Non-Tender, Pedal Edema, Other (Moderate nonpitting lower extremity, moderate bilateral hand swelling nonpitting). No: Leg Pain, Increased Warmth, Mottled, Pallor, Redness Neurological: Alert, Oriented, CN II-XII Intact, Normal Cognition, Normal Gait, Normal Reflexes, No Motor/Sensory Deficits Psychiatric: Normal Affect, Normal Mood Skin Exam: Warm, Dry, Intact, Other (Flushed face however patient states she is always that color.). No: Rash #1 Interpretation EKG Date: 10/05/20 Time: 00:58 Rhythm: Other Rate (Beats/Min): 110 (tachycarida) Bailey: Normal P-Wave: Present QRS: Normal ST-T: Normal QT: Normal Comparison: NA - No Prior EKG Course - Vital Signs Last Recorded V/S: Last Vital Signs Temp 96.7 F L 10/05/20 05:58 Pulse 91 10/05/20 05:58 Resp 15 10/05/20 05:58 BP 112/73 10/05/20 05:58 Pulse Ox 92 L 10/05/20 05:58 - Orders/Labs/Meds Orders: Active Orders 24 hr Category Date Time Status CORTISOL [REF] Stat Lab 10/05/20 01:04 Ordered Saline Lock Insert [OM.PC] Routine Oth 10/04/20 23:55 Ordered EKG 12 Lead [EK] Stat Ther 10/05/20 00:45 Ordered Labs: Laboratory Tests 10/05/20 10/05/20 10/05/20 Range/Units 00:20 00:20 00:20 WBC 13.85 H (5.00-10.00) 10^3/uL RBC 4.72 (3.80-5.50) 10^6/uL Hgb 14.6 (12.0-16.0) g/dL Hct 41.6 (37.0-47.0) % MCV 88.1 (82.0-92.0) fL MCH 30.9 (27.0-31.0) pg MCHC 35.1 (32.0-36.0) g/dL RDW 12.8 (11.5-14.5) % Plt Count 330 (150-400) 10^3/uL MPV 9.4 (7.4-10.4) fL Immature Gran % (Auto) 0.5 (0.0-5.0) % Neut % (Auto) 58.0 (50.0-70.0) % Lymph % (Auto) 33.6 (20.0-40.0) % [place] % (Auto) 6.3 (2.0-8.0) % Eos % (Auto) 1.2 (1.0-3.0) % Baso % (Auto) 0.4 (0.0-1.0) % Neut # (Auto) 8.04 H (2.50-7.00) 10^3/uL Lymph # (Auto) 4.65 H (1.00-4.00) 10^3/uL [place] # (Auto) 0.87 H (0.10-0.80) 10^3/uL Eos # (Auto) 0.17 (0.10-0.30) 10^3/uL Baso # (Auto) 0.05 (0.00-0.10) 10^3/uL Immature Gran # (Auto) 0.07 (0.00-0.50) 10^3/uL Sodium 138 (136-145) mmol/L Potassium 3.0 L (3.5-5.1) mmol/L Chloride 96 L (98-107) mmol/L Carbon Dioxide 25.9 (21.0-32.0) mmol/L Anion Gap 19.1 H (5-15) mmol/L BUN 14 (7-18) mg/dL Creatinine 0.59 (0.51-1.17) mg/dL Est Cr Clr Drug Dosing 112.73 mL/min Estimated GFR (MDRD) > 60 mL/min Glucose 167 H (70-140) mg/dL Calcium 9.1 (8.7-10.3) mg/dL Total Bilirubin 0.2 (0.2-1.0) mg/dL AST 24 (15-37) U/L ALT 35 (14-63) U/L Alkaline Phosphatase 80 (46-116) U/L Troponin I High Sens 5.200 (0-51.000) pg/mL B-Natriuretic Peptide 36 (0-100) pg/mL Total Protein 7.6 (6.4-8.2) g/dL Albumin 3.38 L (3.40-5.00) g/dL Lipase 115 (73-393) U/L TSH, Ultra Sensitive 3.260 (0.340-4.820) uIU/mL SARS CoV-2 RNA Rapid THEO (NEGATIVE) 10/05/20 Range/Units 01:51 WBC (5.00-10.00) 10^3/uL RBC (3.80-5.50) 10^6/uL Hgb (12.0-16.0) g/dL Hct (37.0-47.0) % MCV (82.0-92.0) fL MCH (27.0-31.0) pg MCHC (32.0-36.0) g/dL RDW (11.5-14.5) % Plt Count (150-400) 10^3/uL MPV (7.4-10.4) fL Immature Gran % (Auto) (0.0-5.0) % Neut % (Auto) (50.0-70.0) % Lymph % (Auto) (20.0-40.0) % [place] % (Auto) (2.0-8.0) % Eos % (Auto) (1.0-3.0) % Baso % (Auto) (0.0-1.0) % Neut # (Auto) (2.50-7.00) 10^3/uL Lymph # (Auto) (1.00-4.00) 10^3/uL [place] # (Auto) (0.10-0.80) 10^3/uL Eos # (Auto) (0.10-0.30) 10^3/uL Baso # (Auto) (0.00-0.10) 10^3/uL Immature Gran # (Auto) (0.00-0.50) 10^3/uL Sodium (136-145) mmol/L Potassium (3.5-5.1) mmol/L Chloride (98-107) mmol/L Carbon Dioxide (21.0-32.0) mmol/L Anion Gap (5-15) mmol/L BUN (7-18) mg/dL Creatinine (0.51-1.17) mg/dL Est Cr Clr Drug Dosing mL/min Estimated GFR (MDRD) mL/min Glucose (70-140) mg/dL Calcium (8.7-10.3) mg/dL Total Bilirubin (0.2-1.0) mg/dL AST (15-37) U/L ALT (14-63) U/L Alkaline Phosphatase (46-116) U/L Troponin I High Sens (0-51.000) pg/mL B-Natriuretic Peptide (0-100) pg/mL Total Protein (6.4-8.2) g/dL Albumin (3.40-5.00) g/dL Lipase (73-393) U/L TSH, Ultra Sensitive (0.340-4.820) uIU/mL SARS CoV-2 RNA Rapid THEO Negative (NEGATIVE) Meds: Medications Discontinued Medications Generic Name Dose Route Start Last Admin Trade Name Freq PRN Reason Stop Dose Admin Acetaminophen 1,000 mg 10/05/20 01:52 10/05/20 02:11 Acetaminophen 500 Mg Tab PO 10/05/20 01:53 1,000 mg ONETIME ONE Administration Acetaminophen Confirm 10/05/20 01:50 10/05/20 02:03 Acetaminophen 500 Mg Tab Administered 10/05/20 01:51 Not Given Dose 1,000 mg .ROUTE .STK-MED ONE Diphenhydramine HCl 50 mg 10/05/20 01:45 10/05/20 01:52 Diphenhydramine 25 Mg Cap PO 10/05/20 01:46 50 mg ONETIME ONE Administration Hydromorphone HCl 0.5 mg 10/05/20 01:53 10/05/20 02:09 Hydromorphone 1 Mg/Ml Syringe IVPUSH 10/05/20 01:54 0.5 mg ONETIME ONE Administration Hydromorphone HCl 1 mg 10/05/20 02:53 10/05/20 03:08 Hydromorphone 1 Mg/Ml Syringe IVPUSH 10/05/20 02:54 1 mg ONETIME ONE Administration Sodium Chloride 250 mls @ 25 mls/hr 10/05/20 03:45 10/05/20 03:45 Normal Saline IV 25 mls/hr ASDIRECTED UDAY Administration Potassium Chloride 20 meq/ 100 mls @ 50 mls/hr 10/05/20 03:35 10/05/20 03:46 Premix IV 10/05/20 05:34 50 mls/hr ONETIME ONE Administration Ketorolac Tromethamine 15 mg 10/05/20 03:16 10/05/20 03:31 Ketorolac 30 Mg/Ml Sdv IVPUSH 10/05/20 03:17 15 mg ONETIME ONE Administration Ketorolac Tromethamine Confirm 10/05/20 03:17 10/05/20 03:31 Ketorolac 30 Mg/Ml Sdv Administered 10/05/20 03:18 Not Given Dose 30 mg .ROUTE .STK-MED ONE Lorazepam 0.5 mg 10/05/20 02:17 10/05/20 02:27 Lorazepam 2 Mg/Ml Sdv IVPUSH 10/05/20 02:18 0.5 mg ONETIME ONE Administration Metoclopramide HCl 10 mg 10/05/20 03:56 10/05/20 04:06 Metoclopramide 10 Mg/2 Ml Sdv IVPUSH 10/05/20 03:57 10 mg ONETIME ONE Administration Morphine Sulfate Confirm 10/05/20 01:30 10/05/20 02:00 Morphine 2 Mg/Ml Syringe Administered 10/05/20 01:31 Not Given Dose 2 mg .ROUTE .STK-MED ONE Morphine Sulfate 2 mg 10/05/20 01:51 10/05/20 01:38 Morphine 2 Mg/Ml Syringe IVPUSH 10/05/20 01:52 2 mg ONETIME ONE Administration Ondansetron HCl Confirm 10/05/20 01:30 10/05/20 02:00 Ondansetron 4 Mg/2 Ml Sdv Administered 10/05/20 01:31 Not Given Dose 4 mg .ROUTE .STK-MED ONE Ondansetron HCl 4 mg 10/05/20 01:23 10/05/20 02:16 Ondansetron 4 Mg/2 Ml Sdv IVPUSH 10/05/20 01:24 4 mg ONETIME ONE Administration Potassium Chloride 40 meq 10/05/20 01:55 10/05/20 02:37 Potassium Chloride 20 Meq Tab.Er PO 10/05/20 01:56 40 meq ONETIME ONE Administration Sodium Chloride 10 ml 10/04/20 23:55 Sodium Chloride 0.9% 10 Ml Syringe FLUSH Q8HR PRN keep vein open - Re-Assessments/Exams Free Text/Narrative Re-Assessment/Exam: 10/05/20 01:09 Blood pressures were checked repeatedly bilaterally on each arm ensuring proper cuff size and placement was done. Bilateral blood pressures 150s over 70s heart rate 110 there is no change systolically with her blood pressure. The patient does have quite large obese upper arms therefore likely the blood pressure of 80/50 compared to 1 side and 180s over 90s at home with likely an error. Patient has had no chest pain shortness of breath. Patient notes of chronic abdominal pain nausea diarrhea and not migraine started this morning. Labs obtained saline lock placed cardiac monitoring. EKG shows sinus tachycardia QTC 481 with a rate of 110 bpm. No abnormal T waves. 10/05/20 01:58 Labs returned essentially negative slight elevated white count negative troponin potassium low at 3.0 with a chloride level low. Normal sodium level normal normal renal liver function. Normal TSH. I did send out for a cortisol level to send out. 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 Patient had no chest pain shortness of breath no cold symptoms. Patient has been not taking her potassium for the past 2 days, as she ran out however she is going to start taking it tomorrow. I did give her dose of potassium in the emergency room with some food and patient tolerated well. The patient has been in mildly distressed crying due to her left-sided migraine headache has been going on all day. Imitrex did not help prior to arrival. There is no red flags with this type migraine. She notes this is her classic like left-sided migraine. Patient was also given some ice chips and crackers and tolerated p.o. medicines. Patient was given ice pack to place on her head as well. Patient was given 1 g of Tylenol 50 mg of p.o. Benadryl 4 mg Zofran IV push 2 mg slow IV push morphine. Discussed admitting on observation I would admit the patient under Dr. Doreen Kelley and rechecking labs in the morning and control migraine pain versus patient going home and following up with clinic on Tuesday with Dr. Doreen Kelley. Patient would like to go home and have close follow-up with PCP. I agree with this plan. Strict return precaution discussed in thorough with patient. Patient verbalized understanding along with her younger sister who is at bedside. Patient migraine continues after medicines 0.5 mg of hydromorphone given IV push. Will reassess pain. Patient is continuous monitored with cardiac/vascular sonographer and O2 sats. Her blood pressure unchanged she still continues hypertensive however patient is in pain and her blood pressures in the 150s over 80s. Heart rate 110. She has no signs of DVT she has bilateral leg swelling no posterior calf pain redness or warmth or signs of blood clot. The patient is been mild to moderate distress crying sobbing due to the migraine pain with some slight very slight hyperventilation. Dose of 0.5 mg IV push lorazepam given will reassess. 10/05/20 02:15 10/05/20 02:19 10/05/20 03:08 Patient continues to have pain crying sobbing with family in the room due to her left retro-orbital eye migraine-like pain. Patient has not vomited. Patient w as given p.o. potassium chloride as did not any risk for infiltration of potassium into her peripheral space as she has an IV that is marginal. Patient is having pain therefore 1 mg Dilaudid given. There has been no change in her pain since older medications previously given. Pain is 7/10. 10/05/20 03:17 For patient still having pain despite giving him 1 mg of Dilaudid. As a repeated dose I gave her 15 mg ketorolac IV push Dilaudid given slow. O2 sats 97% room air respirations 16 pulse remains tachycardic 114 regular blood pressure 152/98. 10/05/20 03:24 10/05/20 03:27 10/05/20 03:36 I placed a fan from the patient also help with pain had the patient repositioned in bed as well patient became dizzy with the narcotics have 1 emesis of vomiting. Patient has had the potassium as well approximately 45 minutes to 1 hour. Patient will be given 20 meq IV push potassium as she has been taking diuretics she had potassium of 3.0 do not want to go any lower. Patient will continue to take Lasix tomorrow morning. 20 mEq of potassium IV push given slow 10 mEq an hour peripheral IV. TKO fluids to bring the potassium into the vein will be careful not to overload of fluid only give her an extra 150 mils. 10/05/20 0430: pain has improved. pt be d/c home after potassium infusion completes, pt understands to call Tuesday for same to schedule close follow-up appointment for recheck labs and establish care. Patient left with family and family verbalized understanding. Departure - Departure Time of Disposition: 04:35 Disposition: Home, Self-Care 01 Condition: Good Clinical Impression: Hypokalemia HTN (hypertension) Qualifiers: Hypertension type: unspecified Qualified Code(s): I10 - Essential (primary) hypertension Migraine Qualifiers: Migraine type: without aura Status migrainosus presence: without status migrainosus Intractability: not intractable Qualified Code(s): G43.009 - Migraine without aura, not intractable, without status migrainosus - Discharge Information *PRESCRIPTION DRUG MONITORING PROGRAM REVIEWED*: No *COPY OF PRESCRIPTION DRUG MONITORING REPORT IN PATIENT KRISTIN: No Instructions: Migraine Headache, [id number], Hypokalemia, Hypertension, Adult, [id number] Referrals: Doreen Mcadams MD [Primary Care Provider] - Forms: ED Department Discharge Additional Instructions: Please take your 40 mEq of potassium by mouth with food daily please get plenty rest please call Tuesday and schedule close follow-up with Dr. Doreen Kelley. Please also make sure the other referrals of the GI tests get completed such as stool samples ordered by the GI specialist and scheduling for follow-up as well with that. Sepsis Event Note (ED) - Evaluation Sepsis Screening Result: No Definite Risk - My Orders Last 24 Hours: My Active Orders 10/04/20 23:55 Saline Lock Insert [OM.PC] Routine 10/05/20 00:45 EKG 12 Lead [EK] Stat 10/05/20 01:04 CORTISOL [REF] Stat - Assessment/Plan Last 24 Hours: My Active Orders 10/04/20 23:55 Saline Lock Insert [OM.PC] Routine 10/05/20 00:45 EKG 12 Lead [EK] Stat 10/05/20 01:04 CORTISOL [REF] Stat
[2020-10-05] MEDS ORDERED: Ondansetron 4 MG/2 ML SDV IVPUSH ONE (01:23)
[2020-10-05] MEDS ORDERED: Ondansetron 4 MG/2 ML SDV ONE (01:30)
[2020-10-05] MEDS ORDERED: Morphine 2 MG/ML SYRINGE ONE (01:30)
[2020-10-05 01:43] LABS: ANION GAP 19.1 mmol/L (5-15); CHLORIDE,CL 96 mmol/L (98-107); SODIUM,NA 138 mmol/L (136-145)
[2020-10-05] MEDS ORDERED: diphenhydrAMINE 25 MG Cap PO ONE (01:45)
[2020-10-05] MEDS ORDERED: Acetaminophen 500 MG Tab ONE (01:50)
[2020-10-05] MEDS ORDERED: Morphine 2 MG/ML SYRINGE IVPUSH ONE (01:51)
[2020-10-05] MEDS ORDERED: Acetaminophen 500 MG Tab PO ONE (01:52)
[2020-10-05] MEDS ORDERED: HYDROmorphone 1 MG/ML Syringe IVPUSH ONE ×2 (01:53→02:53)
[2020-10-05] MEDS ORDERED: Potassium Chloride 20 MEQ Tab.ER PO ONE (01:55)
[2020-10-05] MEDS ORDERED: LORazepam 2 MG/ML SDV IVPUSH ONE (02:17)
[2020-10-05] MEDS ORDERED: Potassium Chloride 20 MEQ Tab.ER ONE (02:36)
[2020-10-05] MEDS ORDERED: Ketorolac 30 MG/ML SDV IVPUSH ONE (03:16)
[2020-10-05] MEDS ORDERED: Ketorolac 30 MG/ML SDV ONE (03:17)
[2020-10-05] MEDS ORDERED: Potassium Chloride 100 ML ONE (03:34)
[2020-10-05] MEDS ORDERED: Potassium Chloride 20 MEQ in Premix Bag 1 BAG IV ONE (03:35)
[2020-10-05] MEDS ORDERED: Sodium Chloride 0.9% 250 ML ONE (03:38)
[2020-10-05] MEDS ORDERED: Sodium Chloride 0.9% 250 ML IV SCH (03:45)
[2020-10-05] MEDS ORDERED: Metoclopramide 10 MG/2 ML SDV IVPUSH ONE (03:56)
[2020-10-05 05:59] VITALS: BP 112/73; PULSE 91
== END 2020-10-05 06:15 | disposition home or self-care (01) ==
LOC: KA.ED 23:51
DX: I10 Essential (primary) hypertension (principal); G43.009 Migraine without aura, not intractable, without status migrainosus; E87.6 Hypokalemia; R00.0 Tachycardia, unspecified; E66.9 Obesity, unspecified; Z68.41 Body mass index [BMI] 40.0-44.9, adult; Z88.5 Allergy status to narcotic agent; Z91.040 Latex allergy status; Z88.0 Allergy status to penicillin; Z88.7 Allergy status to serum and vaccine; Z79.899 Other long term (current) drug therapy; Z20.822 Contact with and (suspected) exposure to COVID-19
CPT/HCPCS: 36415; 80053; 82533; 83690; 83880; 84443; 84484; 85025; 93005; 96365; 96366; 96375; 96376; 99284; 99285-25; A9270-GY; J1170; J1885; J2060; J2270; J2405; J2765; J3480; J7050; U0002

== ENCOUNTER 2022-01-25 15:05 | Emergency (ER) | payer MEDICAID, OTHER ==
[2022-01-25] MEDS ORDERED: LORazepam 2 MG/ML SDV IV ONE (15:29)
[2022-01-25] MEDS ORDERED: Ketorolac 30 MG/ML SDV IVPUSH ONE (15:33)
[2022-01-25] MEDS ORDERED: Ondansetron 4 MG/2 ML SDV IV ONE (15:50)
[2022-01-25] MEDS ORDERED: HYDROmorphone 1 MG/ML Syringe IV ONE (15:53)
[2022-01-25] MEDS ORDERED: Piperacillin/Tazobactam 4.5 GM in Sodium Chloride 0.9% 100 ML IV ONE (16:45)
[2022-02-08 12:58] LABS: SODIUM,NA 133 mmol/L (136-145)
[2022-02-08 13:00] LABS: ANION GAP 16.7 mmol/L (5-15); CHLORIDE,CL 91 mmol/L (98-115); ESTIMATED GFR 103 mL/min (>=60)
== END 2022-01-25 17:25 ==
LOC: KA.ED 15:05
DX: M79.671 Pain in right foot (principal); R74.02 Elevation of levels of lactic acid dehydrogenase [LDH]; D72.829 Elevated white blood cell count, unspecified; E87.6 Hypokalemia; E79.0 Hyperuricemia without signs of inflammatory arthritis and tophaceous disease
CPT/HCPCS: 36415; 73590; 73630; 80048; 83605; 84550; 85025; 85379; 96374; 96375; 96376; 99284; J1170; J1885; J2060; J2405; J2543; J3370; J3490; J7050

== ENCOUNTER 2022-09-06 01:25 | Emergency (ER) | payer MEDICAID ==
[2022-09-06] MEDS: Ketorolac 30 MG/ML SDV ONE (01:40)
[2022-09-06] MEDS: Ketorolac 30 MG/ML SDV IM ONE (01:41)
[2022-09-06] MEDS: methylPREDNISolone Sodium Succinate 125 MG/2 ML SDV IVPUSH ONE (02:15)
[2022-09-06] MEDS: HYDROmorphone 1 MG/ML Syringe IVPUSH ONE ×3 (02:15→04:09)
[2022-09-06] MEDS: LORazepam 0.5 MG Tab PO ONE (02:43)
[2022-09-06] MEDS: Ondansetron 4 MG/2 ML SDV IVPUSH ONE (03:27)
[2022-09-06] MEDS: Ondansetron 4 MG/2 ML SDV ONE (03:28)
[2022-09-06] MEDS: Acetaminophen/oxyCODONE 325-5 MG Tab PO ONE (04:30)
[2022-09-06 05:14] VITALS: BP 163/111; PULSE 101
== END 2022-09-06 04:50 | disposition home or self-care (01) ==
LOC: KA.ED 01:25
DX: M10.9 Gout, unspecified (principal); I10 Essential (primary) hypertension; E66.9 Obesity, unspecified; Z68.39 Body mass index [BMI] 39.0-39.9, adult; Z88.5 Allergy status to narcotic agent; Z91.040 Latex allergy status; Z88.0 Allergy status to penicillin; Z88.7 Allergy status to serum and vaccine; Z79.899 Other long term (current) drug therapy
CPT/HCPCS: 96372; 96374; 96375; 96376; 99283-25; 99284; A9270-GY; J1170; J1885; J2405; J2930

== ENCOUNTER 2022-11-09 18:10 | Emergency (ER) | payer MEDICAID ==
[2022-11-09 18:32] LABS: BILIRUBIN,URINE NEGATIVE (NEGATIVE); COLOR,URINE RED (YELLOW); GLUCOSE,URINE NEGATIVE (NEGATIVE); KETONES,URINE 15 mg/dL (NEGATIVE); LEUKOCYTE ESTERASE,URINE NEGATIVE (NEGATIVE); NITRITE,URINE NEGATIVE (NEGATIVE); OCCULT BLOOD,URINE MODERATE (NEGATIVE); PROTEIN,URINE >=300 mg/dL (NEGATIVE); UROBILINOGEN,URINE 0.2 E.U./dL (0.2-1.0)
[2022-11-09 18:34] LABS: APPEARANCE,URINE CLOUDY (CLEAR)
[2022-11-09 18:35] LABS: BACTERIA,URINE OCCASIONAL /HPF (NONE TO FEW); EPITHELIAL CELLS,URINE OCCASIONAL /LPF; RBC,URINE >100 /HPF (0-5); WBC,URINE 0-5 /HPF (0-5)
[2022-11-09 18:58] LABS: BASOPHILS ABSOLUTE AUTO 0.08 10^3/uL (0.00-0.10); BASOPHILS PERCENT AUTO 0.3 % (0.0-1.0); EOSINOPHILS ABSOLUTE AUTO 0.14 10^3/uL (0.10-0.30); EOSINOPHILS PERCENT AUTO 0.6 % (1.0-3.0); HEMATOCRIT 44.3 % (37.0-47.0); HEMOGLOBIN 14.9 g/dL (12.0-16.0); IMMATURE GRAN PERCENT AUTO 0.4 % (0.0-5.0); LYMPHOCYTES PERCENT AUTO 33.7 % (20.0-40.0); MEAN CORPUSCULAR HEMOGLOBIN 30.2 pg (27.0-31.0); MEAN CORPUSCULAR HGB CONC 33.6 g/dL (32.0-36.0); MEAN CORPUSCULAR VOLUME 89.7 fL (82.0-92.0); MEAN PLATELET VOLUME 9.1 fL (7.4-10.4); MONOCYTES ABSOLUTE AUTO 1.68 10^3/uL (0.10-0.80); MONOCYTES PERCENT AUTO 7.1 % (2.0-8.0); NEUTROPHILS ABSOLUTE AUTO 13.75 10^3/uL (2.50-7.00); NEUTROPHILS PERCENT AUTO 57.9 % (50.0-70.0); PLATELET COUNT,PLT 560 10^3/uL (150-400); RED BLOOD CELL COUNT 4.94 10^6/uL (3.80-5.50); RED CELL DISTRIBUTION WIDTH 13.1 % (11.5-14.5); WHITE BLOOD CELL COUNT,WBC 23.75 10^3/uL (5.00-10.00)
[2022-11-09] MEDS: Ketorolac 30 MG/ML SDV IVPUSH ONE (18:58)
[2022-11-09] MEDS: Sodium Chloride 0.9% 1,000 ML IV ONE ×2 (18:58→21:40)
[2022-11-09 19:20] LABS: ALANINE AMINOTRANSFERASE,ALT 24 U/L (14-63); ALBUMIN 3.73 g/dL (3.40-5.00); ALKALINE PHOSPHATASE 83 U/L (46-116); ANION GAP 15.9 mmol/L (5-15); ASPARTATE AMNIOTRANSFERASE,AST 17 U/L (15-37); BILIRUBIN TOTAL 0.1 mg/dL (0.2-1.0); BLOOD UREA NITROGEN,BUN 14 mg/dL (7-18); CALCIUM 9.5 mg/dL (8.7-10.3); CARBON DIOXIDE,CO2 28.5 mmol/L (21.0-32.0); CHLORIDE,CL 98 mmol/L (98-107); CREATININE 0.72 mg/dL (0.51-1.17); GLUCOSE RANDOM 168 mg/dL (70-140); POTASSIUM,K 3.4 mmol/L (3.5-5.1); PROTEIN TOTAL,TP 8.2 g/dL (6.4-8.2); SODIUM,NA 139 mmol/L (136-145)
[2022-11-09 19:22] LABS: ESTIMATED GFR 109 mL/min (>=60)
[2022-11-09] MEDS ORDERED: Naloxone 0.4 MG/ML SDV IVPUSH PRN (19:49)
[2022-11-09] MEDS: Sodium Chloride 0.9% 50 ML IV SCH (19:54)
[2022-11-09] MEDS: Iopamidol 755 Mg/ML 100 ML Bottle IV ONE (19:54)
[2022-11-09] MEDS: HYDROmorphone 1 MG/ML Syringe IVPUSH ONE ×4 (20:08→22:46)
[2022-11-09] MEDS: Ciprofloxacin in D5W 400 MG in Premix Bag 1 BAG IV ONE ×2 (20:20)
[2022-11-09] MEDS: LORazepam 2 MG/ML SDV IVPUSH ONE ×2 (20:44→22:47)
[2022-11-09 20:50] LABS: LACTIC ACID 3.8 mmol/L (0.4-2.0)
[2022-11-09] MEDS: Ondansetron 4 MG/2 ML SDV IVPUSH ONE (22:29)
[2022-11-09] MEDS: Sodium Chloride 0.9% 10 ML Syringe FLUSH PRN (22:48)
[2022-11-10] MEDS: LORazepam 2 MG/ML SDV ONE (00:22)
[2022-11-10 04:15] VITALS: BP 204/106; PULSE 110
== END 2022-11-10 00:33 ==
LOC: KA.ED 18:10
DX: R31.0 Gross hematuria (principal); R10.2 Pelvic and perineal pain; D72.829 Elevated white blood cell count, unspecified; I10 Essential (primary) hypertension; K21.9 Gastro-esophageal reflux disease without esophagitis; E66.9 Obesity, unspecified; Z88.5 Allergy status to narcotic agent; Z91.040 Latex allergy status; Z88.7 Allergy status to serum and vaccine
CPT/HCPCS: 36415; 51702; 74177; 80053; 81001; 83605; 85025; 87040; 96361; 96365; 96375; 96376; 99284; 99285-25; J0744; J1170; J1885; J2060; J2405; J3490; J7030; Q9967

== ENCOUNTER 2023-02-06 06:48 | Emergency (ER) | payer MEDICAID ==
[2023-02-06] MEDS: diphenhydrAMINE 25 MG Cap PO ONE (07:02)
[2023-02-06] MEDS: Ondansetron 4 MG Tab.DIS PO ONE (07:03)
[2023-02-06] MEDS: Ketorolac 30 MG/ML SDV IM ONE (07:07)
[2023-02-06] MEDS ORDERED: Naloxone 0.4 MG/ML SDV IVPUSH PRN (07:34)
[2023-02-06] MEDS: HYDROmorphone 1 MG/ML Syringe IM ONE (07:40)
[2023-02-06 07:44] VITALS: BP 164/71; PULSE 105
== END 2023-02-06 07:57 | disposition home or self-care (01) ==
LOC: KA.ED 06:48
DX: G43.909 Migraine, unspecified, not intractable, without status migrainosus (principal); I10 Essential (primary) hypertension; E66.9 Obesity, unspecified; Z68.41 Body mass index [BMI] 40.0-44.9, adult; Z88.7 Allergy status to serum and vaccine; Z91.040 Latex allergy status; Z88.5 Allergy status to narcotic agent; Z79.899 Other long term (current) drug therapy
CPT/HCPCS: 96372; 99283; 99284; A9270-GY; J1170; J1885

== ENCOUNTER 2024-08-16 22:14 | Emergency (ER) | payer BC ==
[2024-08-16 22:52] LABS: BASOPHILS ABSOLUTE AUTO 0.07 10^3/uL (0.00-0.10); BASOPHILS PERCENT AUTO 0.4 % (0.0-1.0); EOSINOPHILS ABSOLUTE AUTO 0.17 10^3/uL (0.10-0.30); EOSINOPHILS PERCENT AUTO 1.1 % (1.0-3.0); HEMATOCRIT 45.4 % (37.0-47.0); HEMOGLOBIN 15.4 g/dL (12.0-16.0); IMMATURE GRAN ABSOLUTE AUTO 0.07 10^3/uL (0.00-0.04); IMMATURE GRAN PERCENT AUTO 0.4 % (0.0-0.4); LYMPHOCYTES PERCENT AUTO 38.5 % (20.0-40.0); MEAN CORPUSCULAR HEMOGLOBIN 29.4 pg (27.0-31.0); MEAN CORPUSCULAR HGB CONC 33.9 g/dL (32.0-36.0); MEAN CORPUSCULAR VOLUME 86.8 fL (82.0-92.0); MEAN PLATELET VOLUME 9.6 fL (7.4-10.4); MONOCYTES ABSOLUTE AUTO 1.05 10^3/uL (0.10-0.80); MONOCYTES PERCENT AUTO 6.7 % (2.0-8.0); NEUTROPHILS ABSOLUTE AUTO 8.26 10^3/uL (2.50-7.00); NEUTROPHILS PERCENT AUTO 52.9 % (50.0-70.0); PLATELET COUNT,PLT 437 10^3/uL (150-400); RED BLOOD CELL COUNT 5.23 10^6/uL (3.80-5.50); RED CELL DISTRIBUTION WIDTH 13.3 % (11.5-14.5); WHITE BLOOD CELL COUNT,WBC 15.64 10^3/uL (5.00-10.00)
[2024-08-16] MEDS: Labetalol 100 MG/20 ML MDV IVPUSH ONE ×3 (22:56→23:59)
[2024-08-16 23:02] LABS: ALANINE AMINOTRANSFERASE,ALT 35 U/L (14-63); ALBUMIN 3.35 g/dL (3.40-5.00); ALKALINE PHOSPHATASE 91 U/L (46-116); ANION GAP 17.4 mmol/L (5-15); ASPARTATE AMNIOTRANSFERASE,AST 52 U/L (15-37); BILIRUBIN TOTAL 0.3 mg/dL (0.2-1.0); BLOOD UREA NITROGEN,BUN 12 mg/dL (7-18); CALCIUM 9.6 mg/dL (8.7-10.3); CARBON DIOXIDE,CO2 27.2 mmol/L (21.0-32.0); CHLORIDE,CL 98 mmol/L (98-107); CREATININE 0.57 mg/dL (0.51-1.17); GLUCOSE RANDOM 161 mg/dL (70-140); POTASSIUM,K 3.6 mmol/L (3.5-5.1); PROTEIN TOTAL,TP 7.7 g/dL (6.4-8.2); SODIUM,NA 139 mmol/L (136-145)
[2024-08-16 23:04] LABS: LYMPHOCYTES ABSOLUTE AUTO 6.02 10^3/uL (1.00-4.00)
[2024-08-16 23:06] LABS: ESTIMATED GFR 118 mL/min (>=60)
[2024-08-16] MEDS: LORazepam 2 MG/ML SDV IVPUSH ONE (23:26)
[2024-08-16] MEDS ORDERED: niCARdipine/Normal Saline 20 MG in Premix Bag 1 BAG IV SCH (23:30)
[2024-08-16 23:40] VITALS: BP 225/143; PULSE 108
[2024-08-16] MEDS: Ketorolac 30 MG/ML SDV IVPUSH ONE (23:46)
[2024-08-17] MEDS: Labetalol 100 MG/20 ML MDV IVPUSH ONE (00:55)
[2024-08-17] MEDS: Ondansetron 4 MG/2 ML SDV ONE (01:27)
[2024-08-17] MEDS: Ondansetron 4 MG/2 ML SDV IVPUSH ONE (01:30)
== END 2024-08-17 01:44 | disposition home or self-care (01) ==
LOC: KA.ED 22:14
DX: I16.0 Hypertensive urgency (principal); E11.9 Type 2 diabetes mellitus without complications; E66.9 Obesity, unspecified; Z86.16 Personal history of COVID-19; Z88.5 Allergy status to narcotic agent; Z91.040 Latex allergy status; Z88.8 Allergy status to other drugs, medicaments and biological substances; Z79.899 Other long term (current) drug therapy; Z79.82 Long term (current) use of aspirin; Z79.4 Long term (current) use of insulin; Z90.49 Acquired absence of other specified parts of digestive tract; Z79.84 Long term (current) use of oral hypoglycemic drugs; Z90.710 Acquired absence of both cervix and uterus
CPT/HCPCS: 36415; 70450; 80053; 84484; 85025; 93005; 96374; 96375; 96376; 99284-25; J1885; J1920; J2060; J2405; Q3014